=== PATIENT | female | born 1985 | race American Indian/Alaskan Native ===

== ENCOUNTER 2016-11-17 11:59 | Emergency (ER) | payer SELFPAY ==
[2016-11-17 12:35] VITALS: BP 133/87
[2016-11-17] MEDS ORDERED: MOTRIN PO ONE (13:08)
--- NOTE | 2016-11-17 13:08 | Emergency Department Report ---
Upper Extremity - HPI Chief Complaint: Extremity Injury, Upper Stated Complaint: PAIN IN RIGHT ARM Time Seen by Provider: 11/17/16 13:06 Upper Extremity: Right Shoulder (right shoulder pain after pulling a muscle at work.) Occurred When: 1 Day Mechanism: Other (pulled muscle) Severity: moderate (6 out of 10) Symptoms: Yes Pain with Movement (right shoulder), Yes Limited Range of Movement (right shoulder), No Deformity, No Numbness, No Weakness, No Swelling, No Bruising/Ecchymosis, No Laceration or Abrasion Other History: Patient reports that she was lifting an object at work and she pulled her right shoulder. pain 6 out of 10 that is achy . Denies any fever or chills. This happened one day ago and she says she did not take anything for pain. Patient says she has a history of high blood pressure and lupus . She is also has a history of pericarditis kidney disease and was on dialysis in the past but not now. She denies any chest pain or shortness of breath. Denies any radiation of pain. Pain is localized to her right shoulder. ED Review of Systems ROS: Stated complaint: PAIN IN RIGHT ARM Other details as noted in HPI Comment: All other systems reviewed and negative Constitutional: denies: chills, fever, malaise Respiratory: no symptoms reported Cardiovascular: denies: chest pain, palpitations, edema, syncope Gastrointestinal: denies: abdominal pain, nausea, vomiting, diarrhea Musculoskeletal: arthralgia. denies: back pain, joint swelling, myalgia Skin: denies: rash Neurological: denies: headache, weakness, numbness, paresthesias, confusion, abnormal gait, vertigo ED Past Medical Hx - Past Medical History Previous Medical History?: Yes Hx Hypertension: Yes (curently has high blood pressure) Hx Congestive Heart Failure: No Hx Diabetes: No Hx Deep Vein Thrombosis: No Hx Renal Disease: Yes (lupus/dialysis hx) Hx Sickle Cell Disease: No Hx Seizures: No Hx Asthma: No Hx COPD: No Hx HIV: No Additional medical history: Lupus. Hx pericarditis. Kidney function decreased and has been on Hemodialysis before - Surgical History Past Surgical History?: Yes Additional Surgical History: Removal of fluid from around heart. - Family History Family history: hypertension - Social History Smoking Status: Never Smoker Substance Use Type: None - Medications Home Medications: Home Medications Medication Instructions Recorded Confirmed Last Taken Type Acetaminophen [Non-Aspirin Pain 500 mg PO Q8H PRN #12 tablet 11/17/16 Unknown Rx Relief] Upper Extremity Exam - Exam General: Vital signs noted. No distress. Alert and acting appropriately. Head and Torso: No HEENT Abnormality (normal exam), No Neck Tenderness (supple, full range of motion ,no C-spine tenderness.), No Chest/Lungs Abnormality ( clear to auscultate bilaterally, no rhonchi wheezes or rales), No Abdominal Tenderness (nontender to palpate in all quadrants, normal bowel sounds. No guarding or rebound tenderness.), No Back Tenderness (full range of motion, normal inspection and no vertebral tenderness.) Shoulder Exam: Yes Normal Range of Motion in Shoulder ([place] full active range of motion to bilateral shoulders but she said it hurts when she moves her right shoulder.), No Shoulder Tenderness, No Clavicle Tenderness, No Shoulder Deformity, No AC Joint Tenderness Arm Exam: No Arm/Humerus Tenderness, No Arm Deformity Elbow: Yes Normal Range of Motion in Elbow, No Elbow Tenderness, No Elbow Deformity Forearm: No Forearm Tenderness, No Forearm Deformity, No Pain with Pronation, No Pain with Supination Wrist: Yes Normal ROM in Wrist, No Wrist Tenderness, No Wrist Deformity, No Snuffbox Tenderness, No Pain with Axial Thumb Compression Hand: Yes Normal ROM in Digit(s), No Hand Tenderness, No Hand Deformity, No Digit Tenderness, No Digit(s) Deformity, No Tendon Dysfunction CMS Exam: Yes Normal Distal Pulses, Yes Normal Capillary Refill, Yes Normal Distal Sensation, No Broken Skin ED Course Vital Signs 11/17/16 12:33 Temperature 98.1 F Pulse Rate 77 Respiratory 18 Rate Blood Pressure 133/87 O2 Sat by Pulse 96 Oximetry - Reevaluation(s) Reevaluation #1: 11/17/16 13:33 Patient received Motrin 800 mg in emergency room for shoulder pain. Awaiting shoulder x-ray ED Medical Decision Making - Radiology Data Radiology results: report reviewed X-ray of right shoulder reveal no acute bony abnormality or dislocation. No effusion or soft tissue swelling. - Medical Decision Making ED course: Patient here complaining of right shoulder Pain after lifting an object at work. Physical findings for right shoulder strain. Discussed the patient x-ray results which was negative for any fracture or dislocation. She was understanding of diagnosis and treatment plan. Patient given Motrin 800 mg in emergency room for pain which relieved her pain. Patient discharged home with prescription for Tylenol and to follow-up with orthopedic if she continues to have pain. Critical care attestation.: If time is entered above; I have spent that time in minutes in the direct care of this critically ill patient, excluding procedure time. ED Disposition Clinical Impression: Arthralgia of right shoulder region Right shoulder injury Qualifiers: Encounter type: initial encounter Qualified Code(s): S49.91XA - Unspecified injury of right shoulder and upper arm, initial encounter Disposition: TO HOME OR SELFCARE Is pt being admited?: No Does the pt Need Aspirin: No Condition: Stable Instructions: Arthralgia (ED) Additional Instructions: Rest affected area for 72 hours Rest, ice, compress and elevate area. Take Tylenol as prescribed. Prescriptions: Acetaminophen [Non-Aspirin Pain Relief] 500 mg PO Q8H PRN #12 tablet PRN Reason: Pain Referrals: ALAN LIMA MD [Staff Physician] - 3-5 Days Forms: Work/School Release Form(ED)
--- NOTE | 2016-11-17 14:15 | XRay Report ---
RIGHT SHOULDER: History: Right shoulder pain, injury. Routine views demonstrate normal bony and soft tissue structures with normal joint alignment of the shoulder. IMPRESSION: Normal study.
== END 2016-11-17 15:46 | disposition home or self-care (01) ==
LOC: ED 11:59
DX: S49.91XA Unspecified injury of right shoulder and upper arm, initial encounter (principal); I12.0 Hypertensive chronic kidney disease with stage 5 chronic kidney disease or end stage renal disease; N18.6 End stage renal disease; Z99.2 Dependence on renal dialysis
CPT/HCPCS: 99283

== ENCOUNTER 2017-01-16 10:28 | Emergency (ER) | payer SELFPAY ==
[2017-01-16 10:36] VITALS: BP 139/94
[2017-01-16] MEDS ORDERED: MOTRIN PO ONE (11:26)
--- NOTE | 2017-01-16 11:30 | Emergency Department Report ---
ED Headache HPI - General Chief Complaint: Headache Stated Complaint: FEVER/HEADACHE Time Seen by Provider: 01/16/17 11:25 Source: patient, RN notes reviewed - History of Present Illness Initial Comments: pt is a 31 y/o aaf with hx of aom, and seasonal allergies who presents for sinus headache x 1 week pain is 5/10 sinus pressure and aching, pain not relieved by otc nsaid, pain today has migrated to r ear there is no tinitis no loss of hearing fever high 101.2 oral at home subjective, pt denies sore throat no sob no wheezing no stridor. Quality: moderate Head Injury Location: frontal, other (frontal and maxillary sinus ) Recent Head Trauma: no recent headache/trauma, occasional headaches Modifying Factors: improves with: cold therapy, movement Associated Symptoms: facial pain, fever/chills, nasal drainage. denies: loss of consciousness, nausea/vomiting, nasal congestion, numbness in legs/feet, rash , seizures, sinus infection, stiff neck, vision changes, weakness Allergies/Adverse Reactions: Allergies heparin Adverse Reaction (Verified 07/14/15 11:40) Unknown Home Medications: Ambulatory Orders Acetaminophen [Non-Aspirin Pain Relief] 500 mg PO Q8H PRN #12 tablet 11/17/16 Amoxicillin/K Clav Tab [Augmentin 875 mg] 1 tab PO Q12HR #20 tab 01/16/17 Cetirizine HCl [ZyrTEC] 10 mg PO DAILY #30 capsule 01/16/17 Fluticasone [Flonase] 1 spray NS QDAY #1 bottle 01/16/17 Ibuprofen [Motrin 800 MG tab] 800 mg PO Q8HR PRN #30 tablet 01/16/17 ED Review of Systems ROS: Stated complaint: FEVER/HEADACHE Other details as noted in HPI Constitutional: no symptoms reported Eyes: denies: eye pain, eye discharge, vision change ENT: ear pain, congestion. denies: hearing loss, epistaxis Respiratory: denies: cough, shortness of breath, wheezing Cardiovascular: denies: chest pain, palpitations Endocrine: no symptoms reported Gastrointestinal: denies: abdominal pain, nausea, diarrhea Genitourinary: as per HPI Musculoskeletal: denies: back pain, joint swelling, arthralgia Skin: denies: rash, lesions Neurological: as per HPI ED Past Medical Hx - Past Medical History Previous Medical History?: Yes Hx Hypertension: Yes (curently has high blood pressure) Hx Congestive Heart Failure: No Hx Diabetes: No Hx Deep Vein Thrombosis: No Hx Renal Disease: Yes (lupus/dialysis hx) Hx Sickle Cell Disease: No Hx Seizures: No Hx Asthma: No Hx COPD: No Hx HIV: No Additional medical history: Lupus. Hx pericarditis. Kidney function decreased and has been on Hemodialysis before - Surgical History Past Surgical History?: Yes Additional Surgical History: Removal of fluid from around heart. - Social History Smoking Status: Never Smoker Substance Use Type: None - Medications Home Medications: Home Medications Medication Instructions Recorded Confirmed Last Taken Type Acetaminophen [Non-Aspirin Pain 500 mg PO Q8H PRN #12 tablet 11/17/16 Unknown Rx Relief] Amoxicillin/K Clav Tab [Augmentin 1 tab PO Q12HR #20 tab 01/16/17 Unknown Rx 875 mg] Cetirizine HCl [ZyrTEC] 10 mg PO DAILY #30 capsule 01/16/17 Unknown Rx Fluticasone [Flonase] 1 spray NS QDAY #1 bottle 01/16/17 Unknown Rx Ibuprofen [Motrin 800 MG tab] 800 mg PO Q8HR PRN #30 tablet 01/16/17 Unknown Rx ED Physical Exam - General Limitations: No Limitations General appearance: alert, in no apparent distress - Head Head exam: Present: atraumatic, normocephalic - Eye Eye exam: Present: normal appearance, PERRL, EOMI Pupils: Present: normal accommodation - ENT ENT exam: Present: mucous membranes moist - Expanded ENT Exam Expanded TM/Canal exam: Erythema: Right TM, Effusion: Right TM, Canal Tenderness: Right TM Mouth exam: Present: normal external inspection, tongue normal. Absent: trismus , muffled voice, tongue elevation Teeth exam: Present: normal inspection Throat exam: Positive: normal inspection. Negative: tonsillar erythema, tonsillomegaly, tonsillar exudate, R peritonsillar mass, L peritonsillar mass - Neck Neck exam: Present: normal inspection, full ROM, lymphadenopathy, thyromegaly. Absent: tenderness - Respiratory Respiratory exam: Present: normal lung sounds bilaterally. Absent: respiratory distress, wheezes, rhonchi, chest wall tenderness - Cardiovascular Cardiovascular Exam: Present: regular rate, normal rhythm. Absent: systolic murmur, diastolic murmur, rubs, gallop - GI/Abdominal GI/Abdominal exam: Present: soft, normal bowel sounds - Rectal Rectal exam: Present: deferred - Back Exam Back exam: Present: normal inspection - Neurological Exam Neurological exam: Present: alert, oriented X3 - Psychiatric Psychiatric exam: Present: normal affect, normal mood - Skin Skin exam: Present: warm, dry, intact, normal color. Absent: rash ED Course Vital Signs 01/16/17 10:34 Temperature 97.4 F L Pulse Rate 86 Respiratory 16 Rate Blood Pressure 139/94 O2 Sat by Pulse 100 Oximetry ED Medical Decision Making - Medical Decision Making pt is a 31 y/o aaf with hx of aom, and seasonal allergies who presents for sinus headache x 1 week pain is 5/10 sinus pressure and aching, pain not relieved by otc nsaid, pain today has migrated to r ear there is no tinnitis no loss of hearing fever high 101.2 oral at home subjective, pt denies sore throat no sob no wheezing no stridor. exam: bilat TM erythema pain with movement, bilat maxillary sinus tenderness nose: bilat turbinate erythema clear post nasal drip no obstruction no polyps, pharynx: moderate erythema no exudate no lesions no swelling uvula midline no stridor lungs clear bilat no wheezing, plan : tx for AOM/Sinusitis, Augmentin , ibuprofen, flonase, zyrtec, follow up up with pcp if symptoms not improving pt verbalized agreement and understanding with same. Critical care attestation.: If time is entered above; I have spent that time in minutes in the direct care of this critically ill patient, excluding procedure time. ED Disposition Clinical Impression: AOM (acute otitis media) Qualifiers: Otitis media type: serous Laterality: right Recurrence: not specified as recurrent Qualified Code(s): H65.01 - Acute serous otitis media, right ear Sinusitis Qualifiers: Sinusitis location: maxillary Chronicity: acute Recurrence: non-recurrent Qualified Code(s): J01.00 - Acute maxillary sinusitis, unspecified Disposition: TO HOME OR SELFCARE Is pt being admited?: No Does the pt Need Aspirin: No Condition: Good Instructions: Otitis Media (ED), Sinusitis (ED) Prescriptions: Amoxicillin/K Clav Tab [Augmentin 875 mg] 1 tab PO Q12HR #20 tab Cetirizine HCl [ZyrTEC] 10 mg PO DAILY #30 capsule Fluticasone [Flonase] 1 spray NS QDAY #1 bottle Ibuprofen [Motrin 800 MG tab] 800 mg PO Q8HR PRN #30 tablet PRN Reason: pain / fever Forms: Work/School Release Form(ED) Time of Disposition: 11:38
== END 2017-01-16 11:48 | disposition home or self-care (01) ==
LOC: ED 10:28
DX: H65.01 Acute serous otitis media, right ear (principal); J01.00 Acute maxillary sinusitis, unspecified; I10 Essential (primary) hypertension
CPT/HCPCS: 99282

== ENCOUNTER 2017-12-26 08:40 | Inpatient (IN) | payer OTHER ==
[2017-12-26] MEDS ORDERED: APRESOLINE PO ONE ×2 (09:01→10:27)
[2017-12-26 09:33] LABS: Basophils % (Auto) 0.5 % (0.0-1.8); Eosinophils # (Auto) 0.1 K/mm3 (0.0-0.4); Eosinophils % (Auto) 1.7 % (0.0-4.3); Hematocrit 43.6 % (30.3-42.9); Hemoglobin 14.8 gm/dl (10.1-14.3); Lymphocytes # (Auto) 1.6 K/mm3 (1.2-5.4); Lymphocytes % (Auto) 21.6 % (13.4-35.0); Mean Corpuscular HGB Conc 34 % (30-34); Mean Corpuscular Hemoglobin 29 pg (28-32); Mean Corpuscular Volume 85 fl (79-97); Monocytes # (Auto) 0.7 K/mm3 (0.0-0.8); Monocytes % (Auto) 9.1 % (0.0-7.3); Platelet Count 115 K/mm3 (140-440); Red Cell Distribution Width 15.3 % (13.2-15.2)
[2017-12-26 09:47] LABS: Alanine Aminotransferase 58 units/L (7-56); Albumin 2.2 g/dL (3.9-5); BUN/Creatinine Ratio 18; Blood Urea Nitrogen 16 mg/dL (7-17); Calcium 8.7 mg/dL (8.4-10.2); Hemolysis Index 12
--- NOTE | 2017-12-26 10:31 | Emergency Department Report ---
ED Female HPI - General Chief complaint: Abdominal Pain Stated complaint: STOMACH PAIN, NO PERIOD FOR ONE MONTH Time Seen by Provider: 12/26/17 10:22 Source: patient Mode of arrival: Ambulatory Limitations: No Limitations - History of Present Illness Initial comments: Patient is 32 years old female with no significant past medical history. Patient is 2 para 1. She presented to the ER complaining of abdominal pain for the last 2 weeks. Patient describes her pain as cramping. Patient stated that she missed her period approximately 2 month ago. She denied any vaginal bleeding or vaginal discharge. No nausea or vomiting. Patient stated that she never been diagnosed as having blood pressure however her blood pressure in the triage is 176/112. Patient denied any headache, chest pain, weakness numbness or tingling sensation. MD Complaint: pelvic pain -: week(s) (2 weeks) - Related Data Previous Rx's Medication Instructions Recorded Last Taken Type Acetaminophen [Non-Aspirin Pain 500 mg PO Q8H PRN #12 tablet 11/17/16 Unknown Rx Relief] Amoxicillin/K Clav Tab [Augmentin 1 tab PO Q12HR #20 tab 01/16/17 Unknown Rx 875 mg] Cetirizine HCl [ZyrTEC] 10 mg PO DAILY #30 capsule 01/16/17 Unknown Rx Fluticasone [Flonase] 1 spray NS QDAY #1 bottle 01/16/17 Unknown Rx Ibuprofen [Motrin 800 MG tab] 800 mg PO Q8HR PRN #30 tablet 01/16/17 Unknown Rx Allergies Allergy/AdvReac Type Severity Reaction Status Date / Time heparin AdvReac Unknown Verified 07/14/15 11:40 ED Review of Systems ROS: Stated complaint: STOMACH PAIN, NO PERIOD FOR ONE MONTH Other details as noted in HPI Comment: All other systems reviewed and negative Respiratory: denies: cough, orthopnea, shortness of breath, SOB with exertion Cardiovascular: denies: chest pain, palpitations, dyspnea on exertion Gastrointestinal: abdominal pain. denies: nausea, vomiting, diarrhea, constipation, hematemesis, melena, hematochezia Genitourinary: denies: urgency, dysuria, frequency, hematuria, discharge Musculoskeletal: denies: back pain Neurological: denies: headache, weakness ED Past Medical Hx - Past Medical History Previous Medical History?: Yes Hx Hypertension: Yes (curently has high blood pressure) Hx Congestive Heart Failure: No Hx Diabetes: No Hx Deep Vein Thrombosis: No Hx Renal Disease: Yes (lupus/dialysis hx) Hx Sickle Cell Disease: No Hx Seizures: No Hx Asthma: No Hx COPD: No Hx HIV: No Additional medical history: Lupus. Hx pericarditis. Kidney function decreased and has been on Hemodialysis before - Surgical History Past Surgical History?: Yes Additional Surgical History: Removal of fluid from around heart. - Social History Smoking Status: Never Smoker Substance Use Type: None - Medications Home Medications: Home Medications Medication Instructions Recorded Confirmed Last Taken Type Acetaminophen [Non-Aspirin Pain 500 mg PO Q8H PRN #12 tablet 11/17/16 Unknown Rx Relief] Amoxicillin/K Clav Tab [Augmentin 1 tab PO Q12HR #20 tab 01/16/17 Unknown Rx 875 mg] Cetirizine HCl [ZyrTEC] 10 mg PO DAILY #30 capsule 01/16/17 Unknown Rx Fluticasone [Flonase] 1 spray NS QDAY #1 bottle 01/16/17 Unknown Rx Ibuprofen [Motrin 800 MG tab] 800 mg PO Q8HR PRN #30 tablet 01/16/17 Unknown Rx ED Physical Exam - General Limitations: No Limitations General appearance: alert, in no apparent distress - Head Head exam: Present: atraumatic, normocephalic, normal inspection - ENT ENT exam: Present: normal exam, normal orophraynx, mucous membranes moist - Neck Neck exam: Present: normal inspection, full ROM. Absent: tenderness, meningismus - Respiratory Respiratory exam: Present: normal lung sounds bilaterally - Cardiovascular Cardiovascular Exam: Present: regular rate, normal rhythm, normal heart sounds - GI/Abdominal GI/Abdominal exam: Present: soft, normal bowel sounds. Absent: distended, tenderness, guarding, rebound, rigid, diminished bowel sounds, organomegaly, mass, bruit, pulsatile mass, hernia - Extremities Exam Extremities exam: Present: normal inspection, full ROM, normal capillary refill. Absent: tenderness, pedal edema, calf tenderness - Back Exam Back exam: Present: normal inspection, full ROM. Absent: CVA tenderness (R), CVA tenderness (L), muscle spasm, paraspinal tenderness, vertebral tenderness, rash noted - Neurological Exam Neurological exam: Present: alert, oriented X3, CN II-XII intact, normal gait, reflexes normal - Skin Skin exam: Present: warm, intact, normal color ED Course Vital Signs 12/26/17 12/26/17 12/26/17 08:52 09:22 09:24 Temperature 97.7 F Pulse Rate 105 H 101 H 99 H Respiratory 18 18 Rate Blood Pressure 177/129 176/129 Blood Pressure 176/129 [Right] O2 Sat by Pulse 100 99 Oximetry 12/26/17 12/26/17 12/26/17 09:52 10:00 10:15 Temperature 98.4 F Pulse Rate 93 H Respiratory 18 Rate Blood Pressure 169/103 188/129 170/116 Blood Pressure 167/119 [Right] O2 Sat by Pulse 99 Oximetry 12/26/17 10:32 Temperature Pulse Rate 93 H Respiratory Rate Blood Pressure 167/119 Blood Pressure [Right] O2 Sat by Pulse Oximetry ED Medical Decision Making - Lab Data Result diagrams: 12/26/17 09:12 12/26/17 09:12 - Radiology Data Radiology results: report reviewed Referring Physician: VALARIE GIL Patient Name: MAURICIO JIMENEZ Date of : 1985 Sex: Female Report Date: 2017-12-26 Report Status: Finalized Findings [facility] [address] [place] [address] Ultrasound Report Signed Patient: MAURICIO JIMENEZ MR#: [id number] : 1985 Acct:[id number] Age/Sex: 32 / F ADM Date: 12/26/17 Loc: ED Attending Dr: Ordering Physician: VALARIE GIL Date of Service: 12/26/17 Procedure(s): US OB >= 14 weeks Fetus Accession Number(s): [id number] cc: VALARIE GIL FINAL REPORT EXAM: US OB gt; = 14 WEEKS FETUS HISTORY: abdominal pain and COMPARISON: None. TECHNIQUE: Limited obstetric ultrasound was performed. FINDINGS: There is a single gestation. There is no cardiac activity detected. Biparietal diameter corresponds to a gestational age of 29 weeks, 1 day. Head circumference corresponds to a gestational age of 30 weeks, 0 days. Abdominal circumference corresponds to a gestational age of 28 weeks, 5 days. Femoral length corresponds to a gestational age of 29 weeks, 4 days. Composite gestational age by ultrasound is 29 weeks, 3 days, with estimated date of delivery of 03/10/2018. There is an anterior grade 0 placenta. There is oligohydramnios with an amniotic fluid index of 3 centimeters. IMPRESSION: Absent heart activity concerning for demise. Composite gestational age by ultrasound is 29 weeks, 0 days, with estimated date of delivery of 03/10/2018. Oligohydramnios with amniotic fluid index of 3 centimeters. Findings were discussed with Dr. Fang at 11:54 a.m., Eastern standard time, on 12/26/2017. Transcribed By: FARSHAD Dictated By: CHLOE BUENROSTRO MD Electronically Authenticated By: CHLOE BUENROSTRO MD Signed Date/Time: 12/26/17 1154 DD/ 53 TD/TT: 12/26/171153 - Medical Decision Making I discussed the patient is Dr. Taylor, she advised to start magnesium sulfate at 4 g IV and admit patient to labor and delivery. Critical Care Time: Yes Critical care time in (mins) excluding proc time.: 30 Critical care attestation.: If time is entered above; I have spent that time in minutes in the direct care of this critically ill patient, excluding procedure time. ED Disposition Clinical Impression: demise, greater than 22 weeks, antepartum, Preeclampsia, Hypertensive emergency Disposition: [id number] OP ADMIT IP TO THIS HOSP Is pt being admited?: Yes Condition: Stable Instructions: Abdominal Pain (ED), Hypertension (ED) Referrals: PRIMARY CARE, [Primary Care Provider] - 3-5 Days
--- NOTE | 2017-12-26 12:02 | Ultrasound Report ---
FINAL REPORT EXAM: US OB > = 14 WEEKS FETUS HISTORY: abdominal pain and COMPARISON: None. TECHNIQUE: Limited obstetric ultrasound was performed. FINDINGS: There is a single gestation. There is no cardiac activity detected. Biparietal diameter corresponds to a gestational age of 29 weeks, 1 day. Head circumference corresponds to a gestational age of 30 weeks, 0 days. Abdominal circumference corresponds to a gestational age of 28 weeks, 5 days. Femoral length corresponds to a gestational age of 29 weeks, 4 days. Composite gestational age by ultrasound is 29 weeks, 3 days, with estimated date of delivery of 03/10/2018. There is an anterior grade 0 placenta. There is oligohydramnios with an amniotic fluid index of 3 centimeters. IMPRESSION: Absent heart activity concerning for demise. Composite gestational age by ultrasound is 29 weeks, 0 days, with estimated date of delivery of 03/10/2018. Oligohydramnios with amniotic fluid index of 3 centimeters. Findings were discussed with Dr. Fang at 11:54 a.m., Eastern standard time, on 12/26/2017.
[2017-12-26] MEDS ORDERED: MAGNESIUM SULFATE 4GM/100ML 4 GM/100 ML BAG IV ONE (13:00)
[2017-12-26] MEDS ORDERED: LACTATED RINGERS 1,000 ML ONE (13:51)
[2017-12-26] MEDS ORDERED: APRESOLINE IV PRN (13:54)
[2017-12-26] MEDS ORDERED: MINERAL OIL PO PRN (13:54)
[2017-12-26] MEDS ORDERED: BRETHINE IVP PRN (13:54)
[2017-12-26] MEDS ORDERED: BRETHINE SUB-Q PRN (13:54)
[2017-12-26] MEDS: LACTATED RINGERS 1,000 ML IV SCH (14:00)
[2017-12-26] MEDS ORDERED: PITOCin/NS 30 UNIT/500ML 30 UNITS/500 ML BAG IV SCH (14:00)
[2017-12-26] MEDS ORDERED: PITOCin/NS 20 UNIT/1000ML DRIP 20 UNITS/1,000 ML BAG IV SCH (14:00)
--- NOTE | 2017-12-26 14:00 | History and Physical Report ---
History of Present Illness Date of examination: 12/26/17 Date of admission: 12/26/17 12:31 Chief complaint: abdominal pain History of present illness: 32y/o @ 29+3 weeks who presents to the ED with the complaint of ED. Her blood pressures were noted to be significantly elevated. HCG was positive. Pelvic ultrasound demonstrated an intrauterine @ 29 weeks without cardiac activity and oligohydramnios. The patients states she was not aware she was . She has not had care during this . She denies any hypertensive events with her prior . Past History Past Medical History: other (lupus; pericarditis) Past Surgical History: other (pericardiocentesis) Social history: single - Obstetrical History Expected Date of Delivery: 03/10/18 Actual Gestation: 29 Week(s) 3 Day(s) : 2 Para: 1 Hx # Term Pregnancies: 1 Number of Pregnancies: 0 Spontaneous Abortions: 0 Induced : 0 Number of Living Children: 1 Medications and Allergies Allergies Allergy/AdvReac Type Severity Reaction Status Date / Time heparin AdvReac Unknown Verified 07/14/15 11:40 Home Medications Medication Instructions Recorded Confirmed Last Taken Type Acetaminophen [Non-Aspirin Pain 500 mg PO Q8H PRN #12 tablet 11/17/16 Unknown Rx Relief] Amoxicillin/K Clav Tab [Augmentin 1 tab PO Q12HR #20 tab 01/16/17 Unknown Rx 875 mg] Cetirizine HCl [ZyrTEC] 10 mg PO DAILY #30 capsule 01/16/17 Unknown Rx Fluticasone [Flonase] 1 spray NS QDAY #1 bottle 01/16/17 Unknown Rx Ibuprofen [Motrin 800 MG tab] 800 mg PO Q8HR PRN #30 tablet 01/16/17 Unknown Rx Active Meds: Active Medications Ephedrine Sulfate (Ephedrine Sulfate) 10 mg IV Q2M PRN PRN Reason: Hypotension Fentanyl (Sublimaze) 100 mcg IV Q2H PRN PRN Reason: Labor Pain Hydralazine HCl (Apresoline) 5 mg IV Q30MIN PRN PRN Reason: Hypertension Magnesium Sulfate (Magnesium Sulfate 4gm/100ml) 4 gm in 100 mls @ 25 mls/hr IV ONCE.ED ONE Stop: 12/26/17 16:59 Last Admin: 12/26/17 13:29 Dose: Not Given Lactated Ringer's (Lactated Ringers) 1,000 mls @ 125 mls/hr IV DIRECT TERRANCE Oxytocin/Sodium Chloride (Pitocin/Ns 20 Unit/1000ml Drip) 20 units in 1,000 mls @ 125 mls/hr IV DIRECT TERRANCE Oxytocin/Sodium Chloride (Pitocin/Ns 30 Unit/500ml) 30 units in 500 mls @ 1 mls /hr IV TITR TERRANCE; Protocol Lidocaine (Xylocaine 2%) 20 ml INFILTRATI ONCE ONE Stop: 12/26/17 13:55 Mineral Oil (Mineral Oil) 30 ml PO QHS PRN PRN Reason: Constipation Misoprostol (Cytotec) 200 mcg VAGINAL Q4H TERRANCE Terbutaline Sulfate (Brethine) 0.25 mg SUB-Q ONCE PRN PRN Reason: Hyperstimulation/Hypertonicity Terbutaline Sulfate (Brethine) 0.25 mg IVP ONCE PRN PRN Reason: Hyperstimulation/Hypertonicity Review of Systems Eyes: no blurred vision Gastrointestinal: abdominal pain - Vital Signs Vital signs: Vital Signs Temp Pulse Resp BP Pulse Ox 97.7 F 105 H 18 177/129 100 12/26/17 08:52 12/26/17 08:52 12/26/17 08:52 12/26/17 08:52 12/26/17 08:52 Temp Pulse Resp BP Pulse Ox 98.4 F 101 H 17 182/121 98 12/26/17 13:29 12/26/17 13:54 12/26/17 13:29 12/26/17 13:54 12/26/17 13:29 Results Result Diagrams: 12/26/17 09:12 12/26/17 09:12 Abnormal lab results 12/26/17 12/26/17 12/26/17 Range/Units 09:12 09:12 09:12 RBC 5.10 H (3.65-5.03) M/mm3 Hgb 14.8 H (10.1-14.3) gm/dl Hct 43.6 H (30.3-42.9) % RDW 15.3 H (13.2-15.2) % Plt Count 115 L (140-440) K/mm3 [place] % (Auto) 9.1 H (0.0-7.3) % Sodium 132 L (137-145) mmol/L Carbon Dioxide 18 L (22-30) mmol/L AST 58 H (5-40) units/L ALT 58 H (7-56) units/L Alkaline Phosphatase 404 H (35-129) units/L Lactate Dehydrogenase (91-180) units/L Albumin 2.2 L (3.9-5) g/dL HCG, Quant 8843 H (0-4) mIU/mL 12/26/17 Range/Units 09:12 RBC (3.65-5.03) M/mm3 Hgb (10.1-14.3) gm/dl Hct (30.3-42.9) % RDW (13.2-15.2) % Plt Count (140-440) K/mm3 [place] % (Auto) (0.0-7.3) % Sodium (137-145) mmol/L Carbon Dioxide (22-30) mmol/L AST (5-40) units/L ALT (7-56) units/L Alkaline Phosphatase (35-129) units/L Lactate Dehydrogenase 355 H (91-180) units/L Albumin (3.9-5) g/dL HCG, Quant (0-4) mIU/mL All other labs normal. Assessment and Plan - Patient Problems (1) HELLP syndrome (HELLP), second trimester Current Visit: Yes Status: Acute Plan to address problem: admit to L&D for magnesium therapy and delivery (2) demise, greater than 22 weeks, antepartum Current Visit: Yes Status: Acute (3) Hypertensive emergency Current Visit: Yes Status: Acute (4) Preeclampsia Current Visit: Yes Status: Acute
[2017-12-26] MEDS ORDERED: MAGNESIUM SULFATE 40GM/1000ML 40 GM/1,000 ML BAG IV ONE (14:13)
[2017-12-26] MEDS: NORMODYNE IV PRN ×2 (14:20→20:08)
[2017-12-26] MEDS: SUBLIMAZE IV PRN ×2 (14:20→17:52)
[2017-12-26] MEDS: MAGNESIUM SULFATE 40GM/1000ML 40 GM/1,000 ML BAG IV SCH (14:40)
[2017-12-26] MEDS ORDERED: XYLOCAINE 2% INFILTRATI ONE (14:54)
[2017-12-26] MEDS ORDERED: CYTOTEC VAGINAL SCH (15:00)
[2017-12-26 15:07] LABS: Amphetamine Screen,Urine PRESUMPTIVE NEGATIVE; Benzodiazepines Screen,Urine PRESUMPTIVE NEGATIVE; Cannabinoid Screen,Urine PRESUMPTIVE NEGATIVE; Cocaine Screen,Urine PRESUMPTIVE NEGATIVE; Methadone Screen,Urine PRESUMPTIVE NEGATIVE; Opiate Screen,Urine PRESUMPTIVE NEGATIVE
[2017-12-26 15:13] LABS: Bacteria,Urine 1+ /HPF (Negative); Bilirubin,Urine NEG (Negative); Blood,Urine SM (Negative); Color,Urine Yellow (Yellow); Urobilinogen,Urine < 2.0 mg/dL (<2.0)
[2017-12-26 15:20] LABS: Protein,Urine >500 mg/dL (Negative)
[2017-12-26 19:57] LABS: Alanine Aminotransferase 58 units/L (7-56); Albumin 2.6 g/dL (3.9-5); BUN/Creatinine Ratio 18; Blood Urea Nitrogen 14 mg/dL (7-17); Calcium 8.1 mg/dL (8.4-10.2); Hemolysis Index 51; Uric Acid 8.5 mg/dL (3.5-7.6)
[2017-12-26 20:08] LABS: Hematocrit 50.1 % (30.3-42.9); Mean Corpuscular HGB Conc 34 % (30-34); Mean Corpuscular Hemoglobin 30 pg (28-32); Mean Corpuscular Volume 88 fl (79-97); Platelet Count 119 K/mm3 (140-440); Red Blood Count 5.67 M/mm3 (3.65-5.03)
[2017-12-26] MEDS ORDERED: MILK OF MAGNESIA PO PRN (22:54)
[2017-12-26] MEDS ORDERED: TUCKS PAD TP PRN (22:54)
[2017-12-26] MEDS ORDERED: ZOFRAN IV PRN (22:54)
[2017-12-26] MEDS ORDERED: BENADRYL PO PRN (22:54)
[2017-12-26] MEDS ORDERED: PHENERGAN PO PRN (22:54)
[2017-12-26] MEDS ORDERED: TYLENOL PO PRN (22:54)
[2017-12-26] MEDS ORDERED: LANSINOH TP PRN (22:54)
[2017-12-26] MEDS ORDERED: DULCOLAX PR PRN (22:54)
[2017-12-26] MEDS ORDERED: NORCO 5/325 PO PRN (22:54)
[2017-12-26] MEDS ORDERED: PHENERGAN PR PRN (22:54)
[2017-12-26] MEDS ORDERED: SODIUM CHLORIDE FLUSH SYRINGE 10 ML IV PRN (23:00)
[2017-12-26] MEDS: MOTRIN PO SCH (23:49)
[2017-12-27] MEDS: NORMODYNE IV PRN (08:17)
[2017-12-27] MEDS: LACTATED RINGERS 1,000 ML IV SCH (10:27)
[2017-12-27] MEDS: MAGNESIUM SULFATE 40GM/1000ML 40 GM/1,000 ML BAG IV SCH (10:28)
[2017-12-27] MEDS: MOTRIN PO SCH ×3 (11:19→18:26)
[2017-12-27 12:54] LABS: Hematocrit 39.3 % (30.3-42.9); Hemoglobin 13.7 gm/dl (10.1-14.3)
--- NOTE | 2017-12-27 12:59 | Procedure Note ---
OB Delivery Note - Delivery Date of Delivery: 12/26/17 Surgeon: ESTEPHANIA CHRIS Estimated blood loss: 100cc - Vaginal Delivery presentation: vertex Delivery position: OA Intrapartum events: no care, other(please specify) (intrauterine demise) Delivery induction: misoprostol Delivery monitor: none Route of delivery: Delivery placenta: spontaneous Delivery cord: 3 umbilical vessels Anesthesia: none Delivery comments: Patient was admitted for induction of labor of a demise at 29 weeks. The patient induction was initiated with cytotec and she had a spontaneous vaginal delivery attended by the nurse. The infant was a non-viable male infant weighing 3lbs 7oz. The placenta delivered spontaneously intact. No lacerations were noted - A at 1 minute: 0 at 5 minutes: 0 (weight 3lbs 7oz) Gender: Male
[2017-12-27] MEDS: NORMODYNE PO SCH (13:27)
--- NOTE | 2017-12-27 14:43 | Progress Note ---
Assessment and Plan - Patient Problems (1) HELLP syndrome (HELLP), second trimester Current Visit: Yes Status: Acute Plan to address problem: patient demonstrating clinical improvement transition to po labetalol (2) demise, greater than 22 weeks, antepartum Current Visit: Yes Status: Acute (3) Hypertensive emergency Current Visit: Yes Status: Acute (4) Preeclampsia Current Visit: Yes Status: Acute Subjective - Subjective Date of service: 12/27/17 Interval history: The patient is receiving magnesium therapy for 24hr post delivery. She is without complaints. Blood pressures have been labile but improved over her intrapartum pressures. Patient reports: appetite normal, pain well controlled : Objective - Vital Signs Latest vital signs: Vital Signs Temp Pulse Resp BP BP Pulse Ox 12/27/17 12:11 98.1 F 84 20 158/107 93 12/27/17 10:11 97.8 F 76 20 125/84 96 12/27/17 09:00 71 138/96 96 12/27/17 08:31 136/99 12/27/17 08:26 134/96 12/27/17 08:20 128/91 12/27/17 08:17 78 149/102 12/27/17 08:10 149/102 12/27/17 07:41 97.7 F 86 22 153/104 153/104 94 12/27/17 06:00 97.6 F 79 18 128/87 12/27/17 04:00 98.1 F 78 18 135/87 12/27/17 02:00 98.5 F 76 20 122/83 12/27/17 00:43 98.2 F 82 18 121/72 12/26/17 23:49 18 12/26/17 22:50 98.1 F 83 18 130/90 12/26/17 22:16 82 130/81 12/26/17 22:01 81 134/84 12/26/17 21:46 83 143/88 12/26/17 21:31 76 146/88 12/26/17 21:16 76 144/83 12/26/17 21:02 80 146/74 12/26/17 20:46 76 159/114 12/26/17 20:31 81 132/96 12/26/17 20:17 75 168/91 12/26/17 20:12 96.7 F L 75 168/91 12/26/17 19:46 81 195/125 12/26/17 19:15 86 173/83 12/26/17 19:02 81 167/78 12/26/17 18:46 82 179/113 12/26/17 18:32 84 180/101 12/26/17 18:16 85 165/78 12/26/17 18:10 91 H 159/70 12/26/17 18:01 101 H 194/136 12/26/17 17:47 90 197/110 12/26/17 17:45 98.5 F 90 18 197/110 12/26/17 17:32 78 192/121 12/26/17 17:16 75 166/101 12/26/17 17:01 78 149/84 12/26/17 16:46 83 147/80 12/26/17 16:31 76 155/78 12/26/17 16:16 85 154/72 12/26/17 16:01 81 161/90 12/26/17 15:46 74 149/72 12/26/17 15:32 80 137/90 12/26/17 15:16 81 155/95 12/26/17 15:01 80 148/91 12/26/17 14:46 75 145/90 Intake and Output 12/26/17 12/27/17 12/27/17 22:59 06:59 14:59 Intake Total 1000 1110 Output Total 1100 800 800 Balance -100 -800 310 Intake: IV 1000 990 Lactated Ringers 1,000 ml 1000 @ 125 mls/hr IV DIRECT TERRANCE Rx#:[id number] MAGNESIUM SULFATE 40GM/ 990 1000ML 40 gm In 1,000 ml @ 2 GM/HR 50 mls/hr IV DIRECT TERRANCE Rx#:[id number] Oral 120 Output: Urine 1100 800 800 Indwelling Catheter 1100 800 800 Other: Total, Intake Amount 120 Total, Output Amount 1100 800 800 Estimated Blood Loss 50 - Exam Abdomen: Present: normal appearance, soft - Labs Labs: Abnormal lab results 12/26/17 12/26/17 12/26/17 Range/Units 14:12 19:17 19:17 RBC 5.67 H (3.65-5.03) M/mm3 Hgb 17.0 H (10.1-14.3) gm/dl Hct 50.1 H D (30.3-42.9) % RDW 16.0 H (13.2-15.2) % Plt Count 119 L (140-440) K/mm3 Sodium 129 L (137-145) mmol/L Carbon Dioxide 15 L (22-30) mmol/L Uric Acid 8.5 H (3.5-7.6) mg/dL Calcium 8.1 L (8.4-10.2) mg/dL Magnesium (1.7-2.3) mg/dL AST 57 H (5-40) units/L ALT 58 H (7-56) units/L Alkaline Phosphatase 398 H (35-129) units/L Albumin 2.6 L (3.9-5) g/dL Urine WBC (Auto) 13.0 H (0.0-6.0) /HPF 12/27/17 Range/Units 12:30 RBC (3.65-5.03) M/mm3 Hgb (10.1-14.3) gm/dl Hct (30.3-42.9) % RDW (13.2-15.2) % Plt Count (140-440) K/mm3 Sodium (137-145) mmol/L Carbon Dioxide (22-30) mmol/L Uric Acid (3.5-7.6) mg/dL Calcium (8.4-10.2) mg/dL Magnesium 6.40 H (1.7-2.3) mg/dL AST (5-40) units/L ALT (7-56) units/L Alkaline Phosphatase (35-129) units/L Albumin (3.9-5) g/dL Urine WBC (Auto) (0.0-6.0) /HPF
[2017-12-27 16:35] LABS: Alanine Aminotransferase 40 units/L (7-56); Albumin 2.1 g/dL (3.9-5); BUN/Creatinine Ratio 13; Blood Urea Nitrogen 12 mg/dL (7-17); Calcium 7.1 mg/dL (8.4-10.2); Hemolysis Index 14; Uric Acid 8.6 mg/dL (3.5-7.6)
[2017-12-27 16:58] LABS: Hematocrit 39.7 % (30.3-42.9); Hemoglobin 13.5 gm/dl (10.1-14.3); Mean Corpuscular HGB Conc 34 % (30-34); Mean Corpuscular Hemoglobin 29 pg (28-32); Mean Corpuscular Volume 85 fl (79-97); Platelet Count 139 K/mm3 (140-440); Red Blood Count 4.69 M/mm3 (3.65-5.03); Red Cell Distribution Width 15.5 % (13.2-15.2)
[2017-12-28] MEDS: MOTRIN PO SCH ×4 (01:29→17:32)
[2017-12-28] MEDS: NORMODYNE IV PRN (01:30)
[2017-12-28] MEDS: NORMODYNE PO SCH ×4 (01:31→22:25)
--- NOTE | 2017-12-28 08:12 | Progress Note ---
Assessment and Plan A/P PPD 1 s/p non viable pree on mag continue labatelol 300 mg po bid routine PP care Subjective - Subjective Date of service: 12/28/17 Patient reports: appetite normal, voiding normally, pain well controlled, flatus , ambulating normally [place]: Objective - Vital Signs Latest vital signs: Vital Signs Temp Pulse Resp BP BP Pulse Ox 12/28/17 05:50 98.3 F 78 20 125/82 98 12/28/17 01:06 97.6 F 76 20 149/103 99 12/27/17 21:58 97.3 F L 76 20 130/96 99 12/27/17 20:24 97.3 F L 20 130/96 12/27/17 16:28 141/101 12/27/17 16:03 97.4 F L 68 20 161/109 161/109 93 12/27/17 13:59 97.5 F L 76 20 121/74 95 12/27/17 12:11 98.1 F 84 20 158/107 93 12/27/17 10:11 97.8 F 76 20 125/84 96 12/27/17 09:00 71 138/96 96 12/27/17 08:31 136/99 12/27/17 08:26 134/96 12/27/17 08:20 128/91 12/27/17 08:17 78 149/102 Intake and Output 12/27/17 12/28/17 12/28/17 23:59 07:59 15:59 Intake Total 1000 1000 Balance 1000 1000 Intake: IV 1000 1000 Lactated Ringers 1,000 ml 1000 @ 125 mls/hr IV DIRECT TERRANCE Rx#:[id number] PITOCin/NS 20 UNIT/1000ML 1000 DRIP 20 units In 1,000 ml @ 125 mls/hr IV DIRECT TERRANCE Rx#:[id number] - Exam Breasts: Present: normal Cardiovascular: Present: Regular rate, Normal S1 Lungs: Present: Clear to auscultation, Normal air movement Abdomen: Present: normal appearance, soft, normal bowel sounds. Absent: distention, tenderness, guarding Vulva: both: normal Uterus: Present: normal, firm, fundal height below umbilicus. Absent: bogginess , tenderness Extremities: Present: normal Deep Tendon Reflex Grade: Normal +2 - Labs Labs: Abnormal lab results 12/27/17 12/27/17 12/27/17 Range/Units 12:30 13:03 16:01 RDW 15.5 H (13.2-15.2) % Plt Count 139 L (140-440) K/mm3 Sodium 130 L (137-145) mmol/L Carbon Dioxide 17 L (22-30) mmol/L Uric Acid 8.6 H (3.5-7.6) mg/dL Calcium 7.1 L (8.4-10.2) mg/dL Magnesium 6.40 H (1.7-2.3) mg/dL Alkaline Phosphatase 302 H (35-129) units/L Albumin 2.1 L (3.9-5) g/dL
[2017-12-29] MEDS: MOTRIN PO SCH ×4 (00:48→17:43)
[2017-12-29] MEDS: NORMODYNE PO SCH ×2 (10:15→22:31)
--- NOTE | 2017-12-29 13:18 | Progress Note ---
Assessment and Plan A/P PPD 2 s/p non viable pree on mag continue labatelol 300 mg po bid added procardia 60 mg XL QD close monitor to BP Subjective - Subjective Date of service: 12/29/17 Principal diagnosis: s/p severe pree and IUFD Patient reports: appetite normal, voiding normally, pain well controlled, ambulating normally : Objective - Vital Signs Latest vital signs: Vital Signs Temp Pulse Resp BP BP Pulse Ox 12/29/17 11:50 98.1 F 73 20 140/99 65 L 12/29/17 10:15 60 152/79 12/29/17 07:38 99.1 F 84 18 152/79 152/79 99 12/29/17 06:47 18 12/29/17 05:47 18 12/29/17 04:25 98.2 F 69 20 124/78 12/29/17 01:48 16 12/29/17 00:48 18 12/29/17 00:00 98.2 F 92 H 20 142/92 12/28/17 22:25 79 160/95 12/28/17 20:05 98.1 F 83 20 132/85 12/28/17 16:54 98.6 F 12/28/17 15:23 79 148/85 98 Intake and Output 12/28/17 12/29/17 12/29/17 23:59 07:59 15:59 Intake Total 240 480 120 Balance 240 480 120 Intake: Oral 480 120 Intake, Free Water 240 Other: Total, Intake Amount 240 120 # Voids Void 1 1 - Exam Breasts: Present: normal Cardiovascular: Present: Regular rate, Normal S1 Lungs: Present: Clear to auscultation, Normal air movement Abdomen: Present: normal appearance, soft, normal bowel sounds. Absent: distention, tenderness, guarding Vulva: both: normal Uterus: Present: normal, firm, fundal height below umbilicus. Absent: bogginess , tenderness Extremities: Present: normal Deep Tendon Reflex Grade: Normal +2
[2017-12-29] MEDS: PROCARDIA XL PO SCH (13:45)
[2017-12-30] MEDS: MOTRIN PO SCH ×2 (00:06→06:32)
[2017-12-30 08:48] VITALS: BP 136/91
--- NOTE | 2017-12-30 09:04 | Progress Note ---
Assessment and Plan - Patient Problems (1) HELLP syndrome (HELLP), second trimester Current Visit: Yes Status: Acute (2) demise, greater than 22 weeks, antepartum Current Visit: Yes Status: Acute (3) Hypertensive emergency Current Visit: Yes Status: Acute (4) Preeclampsia Current Visit: Yes Status: Acute Subjective - Subjective Date of service: 12/30/17 Principal diagnosis: s/p severe pree and IUFD Objective - Vital Signs Latest vital signs: Vital Signs Temp Pulse Resp BP BP Pulse Ox 12/30/17 07:32 98.5 F 88 18 136/91 96 12/30/17 04:15 98.2 F 91 H 20 136/85 96 12/30/17 00:00 98.9 F 84 20 123/83 97 12/29/17 22:31 82 154/103 12/29/17 20:10 98.2 F 81 20 119/75 96 12/29/17 17:30 135/89 12/29/17 16:15 20 12/29/17 15:59 97.9 F 77 20 173/102 97 12/29/17 11:50 98.1 F 73 20 140/99 65 L 12/29/17 10:15 60 152/79 Intake and Output 12/29/17 12/30/17 12/30/17 22:59 06:59 14:59 Intake Total 480 Balance 480 Intake: Oral 480 Other: Total, Intake Amount 240 # Voids Void 1 1
--- NOTE | 2017-12-30 09:08 | Discharge Summary ---
Providers - Providers Date of Admission: 12/26/17 12:31 Date of discharge: 12/30/17 Attending physician: ESTEPHANIA CHRIS 12/26/17 12:27 Consult to Physician [CONS] Stat Comment: Consulting Provider: ESTEPHANIA CHRIS Physician Instructions: Reason For Exam: demise at 29 weeks, preeclampsia Primary care physician: WATER TREATMENT TECHNICIAN Hospitalization Reason for admission: IUFD Delivery: Discharge diagnosis: other (Severe preeclampsia), intrapartum demise Hospital course: Patient admitted from the ED with severely elevated blood pressures and an IUFD consistent with 29 weeks. The patient was not aware she was . She had a and was placed on magnesium and antihypertensives. Condition at discharge: Good Disposition: DC-01 TO HOME OR SELFCARE - Discharge Diagnoses (1) HELLP syndrome (HELLP), second trimester Status: Acute (2) demise, greater than 22 weeks, antepartum Status: Acute (3) Hypertensive emergency Status: Acute (4) Preeclampsia Status: Acute Plan - Discharge Medications Prescriptions: Ibuprofen [Motrin] 600 mg PO Q8H PRN #30 tablet PRN Reason: Pain Labetalol [Normodyne TAB] 300 mg PO BID #60 tablet NIFEdipine XL [Procardia Xl] 60 mg PO QDAY #30 tablet oxyCODONE /ACETAMINOPHEN [Percocet 5/325] 1 tab PO Q6HR PRN #30 tablet PRN Reason: Pain - Provider Discharge Summary Activity: no sex for 6 weeks, no heavy lifting 4 weeks, no strenuous exercise Diet: routine Instructions: routine Additional instructions: [] Smoking cessation referral if applicable(refer to patient education folder for contact #) [] Refer to [facility]'s [facility] Booklet Call your doctor immediately for: * Fever > 100.5 * Heavy vaginal bleeding ( >1 pad per hour) * Severe persistent headache * Shortness of breath * Reddened, hot, painful area to leg or breast * schedule followup in 2 weeks for blood pressure monitoring * [facility] * [address] [place] [address] rd * [phone] - Follow up plan
[2017-12-30] MEDS: PROCARDIA XL PO SCH (10:47)
[2017-12-30] MEDS: NORMODYNE PO SCH (10:47)
== END 2017-12-30 11:54 | disposition home or self-care (01) | DRG 775 ==
LOC: ED 08:40 → APU 12:31 → LD 13:43 → OB 22:35
PROVIDERS: ADMIT Obstetrics & Gynecology; ATTEND Obstetrics & Gynecology
PROC: 10E0XZZ Delivery of Products of Conception, External Approach (ICD-10-PCS; principal; 2017-12-26)
PROC: 3E0P7VZ Introduction of Hormone into Female Reproductive, Via Natural or Artificial Opening (ICD-10-PCS; 2017-12-26)
DX: O14.24 HELLP syndrome, complicating childbirth (principal); O36.4XX0 Maternal care for intrauterine death, not applicable or unspecified; I16.1 Hypertensive emergency; Z68.41 Body mass index [BMI] 40.0-44.9, adult; O41.03X0 Oligohydramnios, third trimester, not applicable or unspecified; O99.12 Other diseases of the blood and blood-forming organs and certain disorders involving the immune mechanism complicating childbirth; Z3A.29 29 weeks gestation of pregnancy; Z37.1 Single stillbirth; O14.14 Severe pre-eclampsia complicating childbirth; M32.9 Systemic lupus erythematosus, unspecified; O11.4 Pre-existing hypertension with pre-eclampsia, complicating childbirth; O09.33 Supervision of pregnancy with insufficient antenatal care, third trimester
CPT/HCPCS: 36415; 76805; 80053; 80307; 81001; 83615; 83735; 84550; 84702; 85014; 85018; 85025; 85027; 86850; 86900; 86901; 88307; 93005; 93010; 99291; J2590; J3010; J3475; J7120

== ENCOUNTER 2018-06-12 08:37 | Emergency (ER) | payer MEDICAID ==
[2018-06-12] MEDS ORDERED: XYLOCAINE 1% 20 mL INFILTRATI ONE (09:09)
[2018-06-12] MEDS ORDERED: NORCO 5/325 PO ONE (09:09)
--- NOTE | 2018-06-12 09:25 | Emergency Department Report ---
Blank Doc - Documentation Documentation: 32-year-old female presents to the hospital with right thumb pain and swelling. She is right-hand dominant. She accidentally hit the thumb one week ago. She now has pain tired and swelling with a yellow discoloration of the nail bed and lateral nail folds. X-ray ordered. As per medical record patient received a tetanus 07/26/2015. [place] ordered for pain. Patient set up for paronychia drainage. Mid-level to follow
--- NOTE | 2018-06-12 10:30 | Emergency Department Report ---
- General Chief Complaint: Extremity Injury, Upper Stated Complaint: SWOLLEN RIGHT HAND Time Seen by Provider: 06/12/18 09:03 Source: patient Mode of arrival: Ambulatory Limitations: No Limitations - History of Present Illness Initial Comments: 32-year-old female presents to the hospital with right thumb pain and swelling. She is right-hand dominant. She accidentally hit the thumb one week ago. She now has pain tired and swelling with a yellow discoloration of the nail bed and lateral nail folds. X-ray ordered. As per medical record patient received a tetanus 07/26/2015. [place] ordered for pain. Patient set up for paronychia drainage. Extremity Location: Right: Hand (thumb) Context: accidental Associated Symptoms: pain - Related Data Previous Rx's Medication Instructions Recorded Last Taken Type Acetaminophen [Non-Aspirin Pain 500 mg PO Q8H PRN #12 tablet 11/17/16 Unknown Rx Relief] Amoxicillin/K Clav Tab [Augmentin 1 tab PO Q12HR #20 tab 01/16/17 Unknown Rx 875 mg] Cetirizine HCl [ZyrTEC] 10 mg PO DAILY #30 capsule 01/16/17 Unknown Rx Fluticasone [Flonase] 1 spray NS QDAY #1 bottle 01/16/17 Unknown Rx Ibuprofen [Motrin 800 MG tab] 800 mg PO Q8HR PRN #30 tablet 01/16/17 Unknown Rx Ibuprofen [Motrin] 600 mg PO Q8H PRN #30 tablet 12/29/17 Unknown Rx Labetalol [Normodyne TAB] 300 mg PO BID #60 tablet 12/29/17 Unknown Rx NIFEdipine XL [Procardia Xl] 60 mg PO QDAY #30 tablet 12/29/17 Unknown Rx oxyCODONE /ACETAMINOPHEN [Percocet 1 tab PO Q6HR PRN #30 tablet 12/29/17 Unknown Rx 5/325] Allergies Allergy/AdvReac Type Severity Reaction Status Date / Time amoxicillin Allergy Dizziness Verified 06/12/18 09:12 Penicillins Allergy Dizziness Verified 06/12/18 09:12 heparin AdvReac Unknown Verified 06/12/18 08:41 ED Review of Systems ROS: Stated complaint: SWOLLEN RIGHT HAND Other details as noted in HPI ED Past Medical Hx - Past Medical History Hx Hypertension: Yes (curently has high blood pressure) Hx Congestive Heart Failure: No Hx Diabetes: No Hx Deep Vein Thrombosis: No Hx Renal Disease: Yes Hx Sickle Cell Disease: No Hx Seizures: No Hx Asthma: No Hx COPD: No Hx HIV: No Additional medical history: Lupus. Hx pericarditis. Kidney function decreased and has been on Hemodialysis before - Surgical History Additional Surgical History: Removal of fluid from around heart. - Social History Smoking Status: Never Smoker Substance Use Type: None - Medications Home Medications: Home Medications Medication Instructions Recorded Confirmed Last Taken Type Acetaminophen [Non-Aspirin Pain 500 mg PO Q8H PRN #12 tablet 11/17/16 12/26/17 Unknown Rx Relief] Amoxicillin/K Clav Tab [Augmentin 1 tab PO Q12HR #20 tab 01/16/17 12/26/17 Unknown Rx 875 mg] Cetirizine HCl [ZyrTEC] 10 mg PO DAILY #30 capsule 01/16/17 12/26/17 Unknown Rx Fluticasone [Flonase] 1 spray NS QDAY #1 bottle 01/16/17 12/26/17 Unknown Rx Ibuprofen [Motrin 800 MG tab] 800 mg PO Q8HR PRN #30 tablet 01/16/17 12/26/17 Unknown Rx Ibuprofen [Motrin] 600 mg PO Q8H PRN #30 tablet 12/29/17 Unknown Rx Labetalol [Normodyne TAB] 300 mg PO BID #60 tablet 12/29/17 Unknown Rx NIFEdipine XL [Procardia Xl] 60 mg PO QDAY #30 tablet 12/29/17 Unknown Rx oxyCODONE /ACETAMINOPHEN [Percocet 1 tab PO Q6HR PRN #30 tablet 12/29/17 Unknown Rx 5/325] ED Physical Exam - General Limitations: No Limitations General appearance: alert, in no apparent distress - Head Head exam: Present: atraumatic, normocephalic - Respiratory Respiratory exam: Present: normal lung sounds bilaterally. Absent: respiratory distress - Cardiovascular Cardiovascular Exam: Present: regular rate, normal rhythm. Absent: systolic murmur, diastolic murmur, rubs, gallop - Expanded Upper Extremity Exam Right Hand Wrist exam: Present: other (right thumb swelling to pad and knuckle extending proximal joint, decreased range of motion secondary to swelling and pain tenderness to the pad and cuticle nail bed tenderness, appreciate purulent fluid under nail bed. Pulses are intact) Neuro motor exam: Present: wrist extension intact, thumb opposition intact, thumb IP flexion intact, thumb adduction intact, fingers 2-5 abduction intact Vascular: Present: normal capillary refill - Neurological Exam Neurological exam: Present: alert, oriented X3 - Psychiatric Psychiatric exam: Present: normal affect, normal mood - Skin Skin exam: Present: warm, dry, intact, normal color. Absent: rash ED Course Vital Signs 06/12/18 08:41 Temperature 97.8 F Pulse Rate 93 H Respiratory 20 Rate Blood Pressure 151/107 O2 Sat by Pulse 97 Oximetry ED Medical Decision Making - Lab Data Result diagrams: 06/12/18 10:56 06/12/18 10:53 - Radiology Data Radiology results: report reviewed FINAL REPORT EXAM: XR FINGER(S) 2+V RT HISTORY: thumb injury COMPARISON: None. TECHNIQUE: Four views of the right thumb FINDINGS: There is erosion of the tuft of the distal phalanx of the thumb along ulnar aspect. There is overlying soft tissue swelling. There is no radiopaque foreign body. The remainder of the bones are intact. IMPRESSION: Erosion of the tuft of the distal phalanx of the thumb along the ulnar aspect. Findings are concerning for osteomyelitis. Transcribed By: FARSHAD Dictated By: CHLOE BUENROSTRO MD Electronically Authenticated By: CHLOE BUENROSTRO MD Signed Date/Time: 06/12/18 1043 DD/ 1041 TD/TT: 06/12/18 1041 - Medical Decision Making Patient has been evaluated by this provider in fast track as well as Dr. Napier. CBC CMP him a ESR and x-ray of right thumb. Elevated ESR 66 x-ray of right thumb shows osteomyelitis Patient was given vancomycin 2 g IV with 500 mL's of normal saline. Call made to [facility] spoke to Dr. Norris from [facility] he accepted patient. Patient be transferred to the ER to ER. Critical care attestation.: If time is entered above; I have spent that time in minutes in the direct care of this critically ill patient, excluding procedure time. ED Disposition Clinical Impression: Osteomyelitis of finger of right hand, Cellulitis and abscess of finger, unspecified, Paronychia of finger of right hand Disposition: DC/TX-70 ANOTHER TYPE HLTHCARE Is pt being admited?: No Does the pt Need Aspirin: No Condition: Stable Additional Instructions: Patient with the transfer to [facility] to be evaluated. Spoke with Dr. Norris. Referrals: JEFF LOWE MD [Primary Care Provider] - 3-5 Days
--- NOTE | 2018-06-12 10:43 | XRay Report ---
FINAL REPORT EXAM: XR FINGER(S) 2+V RT HISTORY: thumb injury COMPARISON: None. TECHNIQUE: Four views of the right thumb FINDINGS: There is erosion of the tuft of the distal phalanx of the thumb along ulnar aspect. There is overlyin g soft tissue swelling. There is no radiopaque foreign body. The remainder of the bones are intact. IMPRESSION: Erosion of the tuft of the distal phalanx of the thumb along the ulnar aspect. Findings are concernin g for osteomyelitis.
[2018-06-12 11:16] LABS: Basophils % (Auto) 0.7 % (0.0-1.8); Eosinophils # (Auto) 0.2 K/mm3 (0.0-0.4); Eosinophils % (Auto) 2.9 % (0.0-4.3); Hematocrit 39.4 % (30.3-42.9); Hemoglobin 13.1 gm/dl (10.1-14.3); Lymphocytes # (Auto) 1.4 K/mm3 (1.2-5.4); Lymphocytes % (Auto) 23.7 % (13.4-35.0); Mean Corpuscular HGB Conc 33 % (30-34); Mean Corpuscular Volume 82 fl (79-97); Monocytes # (Auto) 0.5 K/mm3 (0.0-0.8); Monocytes % (Auto) 8.9 % (0.0-7.3); Platelet Count 341 K/mm3 (140-440); Red Cell Distribution Width 14.3 % (13.2-15.2)
[2018-06-12 11:22] LABS: BUN/Creatinine Ratio 16; Blood Urea Nitrogen 11 mg/dL (7-17); Calcium 8.7 mg/dL (8.4-10.2); Hemolysis Index 22
[2018-06-12] MEDS ORDERED: VANCOMYCIN 2,000 MG in NACL 0.9% 500 ML 500 ML IV ONE (12:00)
[2018-06-12 12:08] LABS: Erythrocyte Sedimentation Rate 66 mm/Hr (0-20)
[2018-06-13 13:44] VITALS: BP 145/105
== END 2018-06-12 14:25 | disposition other institution (70) ==
LOC: ED 08:37
DX: L03.011 Cellulitis of right finger (principal); I10 Essential (primary) hypertension; M32.9 Systemic lupus erythematosus, unspecified; Z88.0 Allergy status to penicillin; Z88.1 Allergy status to other antibiotic agents
CPT/HCPCS: 36415; 73140; 80048; 85025; 85652; 96365; 96366; 99285; J3370; J7040

== ENCOUNTER 2018-11-05 18:45 | Inpatient (IN) | payer MEDICAID, OTHER ==
--- NOTE | 2018-11-05 19:14 | Event Note ---
ED Screening Note Date of service: 11/05/18 Time: 19:10 ED Screening Note: This is a 33 y.o. F. that presents to the ER with dizziness while at work today. PMH: HLD, renal insufficiency, lupus, and arthritis. Denies N/V/D This initial assessment/diagnostic orders/clinical plan/treatment(s) is/are subject to change based on patients health status, clinical progression and re- assessment by fellow clinical providers in the ED. Further treatment and workup at subsequent clinical providers discretion. Patient/guardian urged not to elope from the ED as their condition may be serious if not clinically assessed and managed. Initial orders include: POC glucose 83.
--- NOTE | 2018-11-05 22:21 | Emergency Department Report ---
ED General Adult HPI - General Chief complaint: Dizziness Stated complaint: SOB/DIZZINESS Time Seen by Provider: 11/05/18 19:09 Source: patient, RN notes reviewed, old records reviewed Mode of arrival: Ambulatory Limitations: No Limitations - History of Present Illness Initial comments: This is a pleasant 33-year-old female. The patient is not known to this provider previously. The patient reportedly has a history of severe preeclampsia, however, she reports that she is not today. Patient also reports that she has not delivered given within the past 6 weeks. Additional past medical history includes high blood pressure, lupus, renal disease, history of pericarditis, patient has been on hemodialysis in the past. She is not currently on dialysis. She presents to the ER today with complaint of painless nontraumatic shortness of breath and lightheadedness. Patient works at [employer]. She reports working consistently, typically does not have any issues working. However, today, she reports that she was working, leaned over to pick something up, and then felt lightheaded. She also felt like she was going to fall to the side. She also describes shortness of breath. This is all new. The symptoms are intermittent and they're painless. They did not radiate anywhere. The patient denies leg pain and leg swelling. The patient also endorses binocular blurry vision. This is now improved. She currently denies headache, neck pain, chest pain, abdominal pain. She denies urinary symptoms. She denies focal extremity weakness or numbness. -: Sudden Consistency: intermittent Improves with: rest Worsens with: movement - Related Data Previous Rx's Medication Instructions Recorded Last Taken Type Acetaminophen [Non-Aspirin Pain 500 mg PO Q8H PRN #12 tablet 11/17/16 Unknown Rx Relief] Amoxicillin/K Clav Tab [Augmentin 1 tab PO Q12HR #20 tab 01/16/17 Unknown Rx 875 mg] Cetirizine HCl [ZyrTEC] 10 mg PO DAILY #30 capsule 01/16/17 Unknown Rx Fluticasone [Flonase] 1 spray NS QDAY #1 bottle 01/16/17 Unknown Rx Ibuprofen [Motrin 800 MG tab] 800 mg PO Q8HR PRN #30 tablet 01/16/17 Unknown Rx Ibuprofen [Motrin] 600 mg PO Q8H PRN #30 tablet 08/21/18 Unknown Rx Labetalol [Labetalol 100mg TAB] 300 mg PO BID #60 tablet 12/29/17 Unknown Rx NIFEdipine XL [Procardia Xl] 60 mg PO QDAY #30 tablet 12/29/17 Unknown Rx oxyCODONE /ACETAMINOPHEN [Percocet 1 tab PO Q6HR PRN #30 tablet 12/29/17 Unknown Rx 5/325] Allergies Allergy/AdvReac Type Severity Reaction Status Date / Time amoxicillin Allergy Dizziness Verified 11/05/18 18:58 Penicillins Allergy Dizziness Verified 11/05/18 18:58 heparin AdvReac Unknown Verified 11/05/18 18:58 ED Review of Systems ROS: Stated complaint: SOB/DIZZINESS Other details as noted in HPI Constitutional: malaise. denies: fever Eyes: vision change. denies: eye discharge ENT: denies: epistaxis Respiratory: shortness of breath Cardiovascular: other (question near-syncope, patient is not sure if she felt like she was going to pass out or not). denies: chest pain Gastrointestinal: denies: abdominal pain, nausea, vomiting, hematemesis, melena, hematochezia Genitourinary: denies: dysuria Musculoskeletal: denies: back pain Skin: denies: lesions Neurological: weakness. denies: numbness, paresthesias, confusion, vertigo Psychiatric: denies: anxiety ED Past Medical Hx - Past Medical History Previous Medical History?: Yes Hx Hypertension: Yes (curently has high blood pressure) Hx Congestive Heart Failure: No Hx Diabetes: No Hx Deep Vein Thrombosis: No Hx Renal Disease: Yes Hx Sickle Cell Disease: No Hx Seizures: No Hx Asthma: No Hx COPD: No Hx HIV: No Additional medical history: Lupus. Hx pericarditis. Kidney function decreased and has been on Hemodialysis before - Surgical History Past Surgical History?: Yes Additional Surgical History: Removal of fluid from around heart. - Social History Smoking Status: Never Smoker Substance Use Type: None - Medications Home Medications: Home Medications Medication Instructions Recorded Confirmed Last Taken Type Acetaminophen [Non-Aspirin Pain 500 mg PO Q8H PRN #12 tablet 11/17/16 12/26/17 Unknown Rx Relief] Amoxicillin/K Clav Tab [Augmentin 1 tab PO Q12HR #20 tab 01/16/17 12/26/17 Unknown Rx 875 mg] Cetirizine HCl [ZyrTEC] 10 mg PO DAILY #30 capsule 01/16/17 12/26/17 Unknown Rx Fluticasone [Flonase] 1 spray NS QDAY #1 bottle 01/16/17 12/26/17 Unknown Rx Ibuprofen [Motrin 800 MG tab] 800 mg PO Q8HR PRN #30 tablet 01/16/17 12/26/17 Unknown Rx Ibuprofen [Motrin] 600 mg PO Q8H PRN #30 tablet 12/29/17 Unknown Rx Labetalol [Labetalol 100mg TAB] 300 mg PO BID #60 tablet 12/29/17 Unknown Rx NIFEdipine XL [Procardia Xl] 60 mg PO QDAY #30 tablet 12/29/17 Unknown Rx oxyCODONE /ACETAMINOPHEN [Percocet 1 tab PO Q6HR PRN #30 tablet 12/29/17 Unknown Rx 5/325] ED Physical Exam - General Limitations: No Limitations General appearance: alert, in no apparent distress - Head Head exam: Present: atraumatic, normocephalic - Eye Eye exam: Present: normal appearance, PERRL, EOMI, other (visual acuity intact to finger counting, color perception, reading at a close distance). Absent: nystagmus - ENT ENT exam: Present: normal exam, normal orophraynx, mucous membranes moist, normal external ear exam - Neck Neck exam: Present: normal inspection, full ROM. Absent: tenderness, meningismus - Respiratory Respiratory exam: Present: normal lung sounds bilaterally. Absent: respiratory distress - Cardiovascular Cardiovascular Exam: Present: regular rate, normal rhythm, normal heart sounds. Absent: bradycardia, tachycardia, irregular rhythm, systolic murmur, diastolic murmur, rubs, gallop - GI/Abdominal GI/Abdominal exam: Present: soft. Absent: distended, tenderness, guarding, rebound, rigid, pulsatile mass - Extremities Exam Extremities exam: Present: normal inspection, full ROM, other (2+ pulses noted in the bilateral upper, lower extremities. Compartments soft. No long bony tenderness. The pelvis is stable.). Absent: pedal edema, calf tenderness - Back Exam Back exam: Present: normal inspection, full ROM. Absent: tenderness, CVA tenderness (R), CVA tenderness (L), paraspinal tenderness - Neurological Exam Neurological exam: Present: alert (Extraocular movements intact. Tongue midline. No facial droop. Facial sensation intact to light touch in the V1, V2, V3 distribution bilaterally. 5 and 5 strength in 4 extremities.. Sensation is intact to light touch in 4 extremities.), oriented X3, CN II-XII intact, normal gait (there is no pass pointing. There is no pronator drift. There is normal [id number]. There is normal gait. There is normal tendon gait.), other. Absent: motor sensory deficit - Psychiatric Psychiatric exam: Present: anxious - Skin Skin exam: Present: warm, dry, intact, normal color. Absent: rash ED Course Vital Signs 11/05/18 11/05/18 11/05/18 19:09 22:31 22:45 Temperature 97.9 F Pulse Rate 89 77 Pulse Rate [ Lying] Pulse Rate [ Sitting] Pulse Rate [ Standing] Respiratory 18 24 Rate Blood Pressure 115/82 111/77 Blood Pressure [Lying] Blood Pressure [Sitting] Blood Pressure [Standing] O2 Sat by Pulse 97 100 98 Oximetry 11/06/18 00:25 Temperature Pulse Rate Pulse Rate [ 80 Lying] Pulse Rate [ 83 Sitting] Pulse Rate [ 88 Standing] Respiratory Rate Blood Pressure Blood Pressure 120/78 [Lying] Blood Pressure 128/88 [Sitting] Blood Pressure 128/90 [Standing] O2 Sat by Pulse Oximetry - Reevaluation(s) Reevaluation #1: 11/06/18 00:20 Differential diagnosis, including but not limited to: Orthostasis, vagal event, structural cardiac disease, dehydration, electrolyte derangement, pulmonary embolism Assessment and plan: 33-year-old female with multiple vascular risk factors, coming in today with nonspecific resolve binocular blurry vision, nonspecific dizziness, nonspecific shortness of breath. The patient is afebrile with reassuring vital signs. Her physical examination appears to be within normal limits and is unremarkable. She has a GCS of 15, and an NIH score of 0. Her objective laboratory testing appears to be unremarkable so far. Her EKG today is abnormal, and demonstrates multiple changes when compared to a prior EKG. Given history of lupus, shortness of breath, nonspecific dizziness, numerous T- wave abnormalities, d-dimer is sent, elevated, and CT scan of the chest will be ordered. Patient is not having chest pain at this time. CT scan of the chest has been ordered. Noncontrast CT scan of the brain is negative. X-ray of the chest nonspecific. Reevaluation #2: 11/06/18 01:51 Patient appears comfortable. Patient in no acute distress. Discussed recommendations with patient, given complex past medical history, nature of patient's described symptoms, EKG changes, we will admit the patient to the medical service for further evaluation. Because of technical issues, the radiology group has not interpreted the CT scan of the chest. We do not suspect dissection at this time. The hospital physician, Dr. Polina BROWNING will admit the patient to the medical service. Reevaluation #3: 11/06/18 02:00 CT scan of the chest was negative for acute disease ED Medical Decision Making - Lab Data Result diagrams: 11/05/18 23:05 11/05/18 23:05 Vital Signs 11/05/18 19:09 Temperature 97.9 F Pulse Rate 89 Respiratory 18 Rate Blood Pressure 115/82 O2 Sat by Pulse 97 Oximetry Lab Results 11/05/18 11/05/18 11/05/18 Range/Units 19:22 22:36 23:05 WBC 8.5 (4.5-11.0) K/mm3 RBC 4.96 (3.65-5.03) M/mm3 Hgb 13.7 (10.1-14.3) gm/dl Hct 40.4 (30.3-42.9) % MCV 82 (79-97) fl MCH 28 (28-32) pg MCHC 34 (30-34) % RDW 15.4 H (13.2-15.2) % Plt Count 355 (140-440) K/mm3 Lymph % (Auto) 24.5 (13.4-35.0) % [place] % (Auto) 8.6 H (0.0-7.3) % Eos % (Auto) 1.5 (0.0-4.3) % Baso % (Auto) 0.9 (0.0-1.8) % Lymph # 2.1 (1.2-5.4) K/mm3 [place] # 0.7 (0.0-0.8) K/mm3 Eos # 0.1 (0.0-0.4) K/mm3 Baso # 0.1 (0.0-0.1) K/mm3 Seg Neutrophils % 64.5 (40.0-70.0) % Seg Neutrophils # 5.5 (1.8-7.7) K/mm3 PT (12.2-14.9) Sec. INR (0.87-1.13) D-Dimer (0-234) ng/mlDDU Sodium (137-145) mmol/L Potassium (3.6-5.0) mmol/L Chloride (98-107) mmol/L Carbon Dioxide (22-30) mmol/L Anion Gap mmol/L BUN (7-17) mg/dL Creatinine (0.7-1.2) mg/dL Estimated GFR ml/min BUN/Creatinine Ratio % Glucose (65-100) mg/dL POC Glucose 83 110 H (70-105) Calcium (8.4-10.2) mg/dL Magnesium (1.7-2.3) mg/dL Total Bilirubin (0.1-1.2) mg/dL AST (5-40) units/L ALT (7-56) units/L Alkaline Phosphatase (35-129) units/L Total Creatine Kinase (30-135) units/L Troponin T (0.00-0.029) ng/mL Total Protein (6.3-8.2) g/dL Albumin (3.9-5) g/dL Albumin/Globulin Ratio % HCG, Quant (0-4) mIU/mL 11/05/18 11/05/18 11/05/18 Range/Units 23:05 23:05 23:05 WBC (4.5-11.0) K/mm3 RBC (3.65-5.03) M/mm3 Hgb (10.1-14.3) gm/dl Hct (30.3-42.9) % MCV (79-97) fl MCH (28-32) pg MCHC (30-34) % RDW (13.2-15.2) % Plt Count (140-440) K/mm3 Lymph % (Auto) (13.4-35.0) % [place] % (Auto) (0.0-7.3) % Eos % (Auto) (0.0-4.3) % Baso % (Auto) (0.0-1.8) % Lymph # (1.2-5.4) K/mm3 [place] # (0.0-0.8) K/mm3 Eos # (0.0-0.4) K/mm3 Baso # (0.0-0.1) K/mm3 Seg Neutrophils % (40.0-70.0) % Seg Neutrophils # (1.8-7.7) K/mm3 PT 13.8 (12.2-14.9) Sec. INR 1.09 (0.87-1.13) D-Dimer 1324.35 H (0-234) ng/mlDDU Sodium 137 (137-145) mmol/L Potassium 4.6 (3.6-5.0) mmol/L Chloride 99.5 (98-107) mmol/L Carbon Dioxide 24 (22-30) mmol/L Anion Gap 18 mmol/L BUN 20 H (7-17) mg/dL Creatinine 1.4 H (0.7-1.2) mg/dL Estimated GFR 53 ml/min BUN/Creatinine Ratio 14 % Glucose 71 (65-100) mg/dL POC Glucose (70-105) Calcium 9.5 (8.4-10.2) mg/dL Magnesium 2.10 (1.7-2.3) mg/dL Total Bilirubin 0.70 (0.1-1.2) mg/dL AST 21 (5-40) units/L ALT 14 (7-56) units/L Alkaline Phosphatase 77 (35-129) units/L Total Creatine Kinase 259 H (30-135) units/L Troponin T < 0.010 (0.00-0.029) ng/mL Total Protein 9.6 H (6.3-8.2) g/dL Albumin 3.9 (3.9-5) g/dL Albumin/Globulin Ratio 0.7 % HCG, Quant (0-4) mIU/mL 11/05/18 Range/Units 23:05 WBC (4.5-11.0) K/mm3 RBC (3.65-5.03) M/mm3 Hgb (10.1-14.3) gm/dl Hct (30.3-42.9) % MCV (79-97) fl MCH (28-32) pg MCHC (30-34) % RDW (13.2-15.2) % Plt Count (140-440) K/mm3 Lymph % (Auto) (13.4-35.0) % [place] % (Auto) (0.0-7.3) % Eos % (Auto) (0.0-4.3) % Baso % (Auto) (0.0-1.8) % Lymph # (1.2-5.4) K/mm3 [place] # (0.0-0.8) K/mm3 Eos # (0.0-0.4) K/mm3 Baso # (0.0-0.1) K/mm3 Seg Neutrophils % (40.0-70.0) % Seg Neutrophils # (1.8-7.7) K/mm3 PT (12.2-14.9) Sec. INR (0.87-1.13) D-Dimer (0-234) ng/mlDDU Sodium (137-145) mmol/L Potassium (3.6-5.0) mmol/L Chloride (98-107) mmol/L Carbon Dioxide (22-30) mmol/L Anion Gap mmol/L BUN (7-17) mg/dL Creatinine (0.7-1.2) mg/dL Estimated GFR ml/min BUN/Creatinine Ratio % Glucose (65-100) mg/dL POC Glucose (70-105) Calcium (8.4-10.2) mg/dL Magnesium (1.7-2.3) mg/dL Total Bilirubin (0.1-1.2) mg/dL AST (5-40) units/L ALT (7-56) units/L Alkaline Phosphatase (35-129) units/L Total Creatine Kinase (30-135) units/L Troponin T (0.00-0.029) ng/mL Total Protein (6.3-8.2) g/dL Albumin (3.9-5) g/dL Albumin/Globulin Ratio % HCG, Quant < 2 (0-4) mIU/mL - EKG Data -: EKG Interpreted by Oh - EKG Data 11/06/18 00:22 EKG today shows a normal sinus rhythm, 70 bpm, normal axis, QTC prolonged, T wave inversions V2, V3, V4 and V5, borderline atrial enlargement, T wave inversions 1 and aVL, compared to prior EKG from December 2017, T-wave abnormalities appear to be new. These T-wave abnormalities are unlikely to be consistent with persistent juvenile T-wave inversion. This EKG is not consistent with an ST elevation myocardial infarction. - Radiology Data Radiology results: report reviewed, image reviewed Noncontrast CT scan of the brain negative for acute disease Critical care attestation.: If time is entered above; I have spent that time in minutes in the direct care of this critically ill patient, excluding procedure time. ED Disposition Clinical Impression: Near syncope, Acute electrocardiogram changes, Shortness of breath Disposition: OP ADMIT IP TO THIS HOSP Is pt being admited?: Yes Does the pt Need Aspirin: Yes Condition: Stable Referrals: YUNG VIEIRA MD [Primary Care Provider] - 3-5 Days
[2018-11-05 23:14] LABS: Basophils # (Auto) 0.1 K/mm3 (0.0-0.1); Basophils % (Auto) 0.9 % (0.0-1.8); Eosinophils # (Auto) 0.1 K/mm3 (0.0-0.4); Eosinophils % (Auto) 1.5 % (0.0-4.3); Hematocrit 40.4 % (30.3-42.9); Hemoglobin 13.7 gm/dl (10.1-14.3); Lymphocytes # (Auto) 2.1 K/mm3 (1.2-5.4); Lymphocytes % (Auto) 24.5 % (13.4-35.0); Mean Corpuscular HGB Conc 34 % (30-34); Mean Corpuscular Volume 82 fl (79-97); Monocytes # (Auto) 0.7 K/mm3 (0.0-0.8); Monocytes % (Auto) 8.6 % (0.0-7.3); Platelet Count 355 K/mm3 (140-440); Red Blood Count 4.96 M/mm3 (3.65-5.03); Red Cell Distribution Width 15.4 % (13.2-15.2)
[2018-11-05 23:25] LABS: INR 1.09 (0.87-1.13)
[2018-11-05 23:39] LABS: Alanine Aminotransferase 14 units/L (7-56); Albumin 3.9 g/dL (3.9-5); BUN/Creatinine Ratio 14; Blood Urea Nitrogen 20 mg/dL (7-17); Calcium 9.5 mg/dL (8.4-10.2); Hemolysis Index 16
--- NOTE | 2018-11-05 23:42 | Cat Scan Report ---
PROCEDURE: CT head without contrast. TECHNIQUE: Computerized tomography of the head was performed without contrast material. CT DOSE LENGTH PRODUCT: 920.48 mGycm HISTORY: Lightheadedness/Dizziness COMPARISONS: None. FINDINGS: The ventricles are normal in size. The paredes matter and white matter appear normal. There are no mass lesions. There is no intracranial hemorrhage. The calvarium appears intact. The mastoid air cells and visualized paranasal sinuses are well aerated. IMPRESSION: Normal study. This document is electronically signed by Jose Linda MD., November 05 2018 11:40:50 PM ET
[2018-11-05] MEDS ORDERED: NACL 0.9% 1000 ML 1,000 ML IV ONE (23:55)
--- NOTE | 2018-11-06 00:25 | XRay Report ---
PROCEDURE: XR CHEST ROUTINE 2V TECHNIQUE: PA and lateral chest radiographs were obtained. HISTORY: Lightheadedness/Dizziness COMPARISONS: Prior chest x-ray 06/30/2011. FINDINGS: Heart: Mildly enlarged. Mediastinum/Vessels: Upper lobe vasculature mildly distended although sharply defined. No pulmonary e garrick is seen.. Lungs/Pleural space: No infiltrates or masses are identified. The pleural stripe on the left lateral ly is mildly prominent or thickened and there is some blunting of the left lateral costophrenic angle . There may be a small left effusion. Bony thorax: No acute osseous abnormality. IMPRESSION: Mild cardiomegaly. There is also mild pulmonary venous hypertension changes. No pulmonary edema, infiltrates or masses are identified. Mild thickening left pleural stripe suggesting small left effusion. This document is electronically signed by Wade Buck MD., November 06 2018 12:22:25 AM ET
--- NOTE | 2018-11-06 01:53 | Cat Scan Report ---
PROCEDURE: CT angiogram chest with contrast. TECHNIQUE: Computerized tomographic angiography of the chest was performed after the IV injection of iodinated nonionic contrast including image processing. The image data was postprocessed using 2-di mensional multiplanar reformatted (MPR) and 3-dimensional (MIP and/or volume rendered) techniques. Au tomated exposure control, adjustment of mA and/or kV according to patient size, or iterative reconstr uction dose optimization techniques were utilized. CT DOSE LENGTH PRODUCT: 887.94 mGycm HISTORY: sob ekg changes near syncope COMPARISONS: None. FINDINGS: The trachea and central bronchi appear normal. The lungs are grossly clear. There is mild groundglass opacity in the dependent portions of both lower lobes. This probably represents subsegmental atelect asis. There is a small posterior diaphragmatic hernia on the left. This contains abdominal fat. There is a trace amount of left pleural fluid. The thoracic aorta has a normal caliber without evidence of dissection. The pulmonary arteries enhance normally. There are no filling defects to indicate pulmon herberth embolism. There is no mediastinal adenopathy. The heart size is mildly enlarged. The adrenal glan ds are normal in size. The thoracic skeleton appears intact. IMPRESSION: No evidence of pulmonary embolism. Trace amount of left pleural fluid. This document is electronically signed by Jose Linda MD., November 06 2018 01:51:37 AM ET
[2018-11-06] MEDS ORDERED: ZOFRAN IV PRN (02:09)
[2018-11-06] MEDS ORDERED: TYLENOL PO PRN (02:09)
[2018-11-06] MEDS ORDERED: SODIUM CHLORIDE FLUSH SYRINGE 10 ML IV PRN (02:09)
--- NOTE | 2018-11-06 02:18 | History and Physical Report ---
History of Present Illness Date of examination: 11/06/18 Date of admission: 11/06/2018 Chief complaint: Shortness of breath and dizziness History of present illness: Patient is a 33-year-old female with PMHx of HTN, lupus, renal disease (hemodialysis in the past), pericarditis (status post pericardial window), patient presents to the ER today with complaints of dizziness and shortness of breath. Patient states that the symptoms started while she was at work, the shortness of breath was worse with exertion, the symptoms persist throughout the day and she decided to come to the ER for evaluation. Patient denies chest pain at this time, she denies diaphoresis, denies nausea or vomiting, denies diaphoresis, denies recent illness. Patient reports that last hospitalization was in June of this year, she had been fine before the symptoms started to the. In the ER her d-dimer, BUN/creatinine was elevated, patient had a CT of the chest to rule out PE was negative, a CT of the brain was negative she is admitted for further evaluation. Past History Past Medical History: No medical history, hypertension, renal failure (Lupus, pericarditis), other (Lupus,) Past Surgical History: Other (pericardial window) Social history: no significant social history Medications and Allergies Allergies Allergy/AdvReac Type Severity Reaction Status Date / Time amoxicillin Allergy Dizziness Verified 11/05/18 18:58 Penicillins Allergy Dizziness Verified 11/05/18 18:58 heparin AdvReac Unknown Verified 11/05/18 18:58 Home Medications Medication Instructions Recorded Confirmed Last Taken Type Acetaminophen [Non-Aspirin Pain 500 mg PO Q8H PRN #12 tablet 11/17/16 12/26/17 Unknown Rx Relief] Amoxicillin/K Clav Tab [Augmentin 1 tab PO Q12HR #20 tab 01/16/17 12/26/17 Unknown Rx 875 mg] Cetirizine HCl [ZyrTEC] 10 mg PO DAILY #30 capsule 01/16/17 12/26/17 Unknown Rx Fluticasone [Flonase] 1 spray NS QDAY #1 bottle 01/16/17 12/26/17 Unknown Rx Ibuprofen [Motrin 800 MG tab] 800 mg PO Q8HR PRN #30 tablet 01/16/17 12/26/17 Unknown Rx Ibuprofen [Motrin] 600 mg PO Q8H PRN #30 tablet 12/29/17 Unknown Rx Labetalol [Labetalol 100mg TAB] 300 mg PO BID #60 tablet 12/29/17 Unknown Rx NIFEdipine XL [Procardia Xl] 60 mg PO QDAY #30 tablet 12/29/17 Unknown Rx oxyCODONE /ACETAMINOPHEN [Percocet 1 tab PO Q6HR PRN #30 tablet 12/29/17 Unknown Rx 5/325] Review of Systems Constitutional: anorexia Exam - Constitutional Vitals: Temp Pulse Resp BP Pulse Ox 97.9 F 80 24 120/78 98 11/05/18 19:09 11/06/18 00:25 11/05/18 22:45 11/06/18 00:25 11/05/18 22:45 General appearance: Present: no acute distress - EENT Eyes: Present: EOM intact ENT: hearing intact - Neck Neck: Present: normal ROM - Respiratory Respiratory effort: normal Respiratory: bilateral: CTA - Cardiovascular Rhythm: regular Heart Sounds: Present: S1 & S2 - Extremities Extremities: no ischemia, No edema Peripheral Pulses: within normal limits - Abdominal General gastrointestinal: Present: non-tender, non-distended Female genitourinary: Present: deferred - Rectal Rectal Exam: deferred - Integumentary Integumentary: Present: warm - Musculoskeletal Musculoskeletal: strength equal bilaterally - Psychiatric Psychiatric: cooperative - Neurologic Neurologic: focal deficits, moves all extremities Results - Labs CBC & Chem 7: 11/05/18 23:05 11/05/18 23:05 Labs: Laboratory Last Values WBC 8.5 K/mm3 (4.5-11.0) 11/05/18 23:05 RBC 4.96 M/mm3 (3.65-5.03) 11/05/18 23:05 Hgb 13.7 gm/dl (10.1-14.3) 11/05/18 23:05 Hct 40.4 % (30.3-42.9) 11/05/18 23:05 MCV 82 fl (79-97) 11/05/18 23:05 MCH 28 pg (28-32) 11/05/18 23:05 MCHC 34 % (30-34) 11/05/18 23:05 RDW 15.4 % (13.2-15.2) H 11/05/18 23:05 Plt Count 355 K/mm3 (140-440) 11/05/18 23:05 Lymph % (Auto) 24.5 % (13.4-35.0) 11/05/18 23:05 [place] % (Auto) 8.6 % (0.0-7.3) H 11/05/18 23:05 Eos % (Auto) 1.5 % (0.0-4.3) 11/05/18 23:05 Baso % (Auto) 0.9 % (0.0-1.8) 11/05/18 23:05 Lymph # 2.1 K/mm3 (1.2-5.4) 11/05/18 23:05 [place] # 0.7 K/mm3 (0.0-0.8) 11/05/18 23:05 Eos # 0.1 K/mm3 (0.0-0.4) 11/05/18 23:05 Baso # 0.1 K/mm3 (0.0-0.1) 11/05/18 23:05 Seg Neutrophils % 64.5 % (40.0-70.0) 11/05/18 23:05 Seg Neutrophils # 5.5 K/mm3 (1.8-7.7) 11/05/18 23:05 PT 13.8 Sec. (12.2-14.9) 11/05/18 23:05 INR 1.09 (0.87-1.13) 11/05/18 23:05 1324.35 ng/mlDDU (0-234) H 11/05/18 23:05 Sodium 137 mmol/L (137-145) 11/05/18 23:05 Potassium 4.6 mmol/L (3.6-5.0) 11/05/18 23:05 Chloride 99.5 mmol/L (98-107) 11/05/18 23:05 Carbon Dioxide 24 mmol/L (22-30) 11/05/18 23:05 18 mmol/L 11/05/18 23:05 BUN 20 mg/dL (7-17) H 11/05/18 23:05 1.4 mg/dL (0.7-1.2) H 11/05/18 23:05 Estimated GFR 53 ml/min 11/05/18 23:05 14 % 11/05/18 23:05 Glucose 71 mg/dL (65-100) 11/05/18 23:05 POC Glucose 110 (70-105) H 11/05/18 22:36 Calcium 9.5 mg/dL (8.4-10.2) 11/05/18 23:05 Magnesium 2.10 mg/dL (1.7-2.3) 11/05/18 23:05 0.70 mg/dL (0.1-1.2) 11/05/18 23:05 AST 21 units/L (5-40) 11/05/18 23:05 ALT 14 units/L (7-56) 11/05/18 23:05 77 units/L (35-129) 11/05/18 23:05 259 units/L (30-135) H 11/05/18 23:05 < 0.010 ng/mL (0.00-0.029) 11/06/18 00:10 9.6 g/dL (6.3-8.2) H 11/05/18 23:05 3.9 g/dL (3.9-5) 11/05/18 23:05 0.7 % 11/05/18 23:05 HCG, Quant < 2 mIU/mL (0-4) 11/05/18 23:05 Assessment and Plan Assessment and plan: 1. Dizziness 2. Acute dyspnea (negative CT chest) 3. CKD/NINO (was on hemodialysis) 4. Hypertension 5. History of lupus 6. History of pericarditis Plan: Patient is admitted for SOB, dizziness (negative CT of the brain) Echocardiogram in a.m. Continue to monitor cardiac status IV fluid for hydration If patient's condition improved, may DC in a.m. Plan of care was discussed with patient voiced understanding Advance Directives: Yes VTE prophylaxis?: Mechanical Plan of care discussed with patient/family: Yes
[2018-11-06] MEDS ORDERED: NACL 0.45% 1000 ML 1,000 ML IV SCH (03:00)
[2018-11-06] MEDS ORDERED: SODIUM CHLORIDE FLUSH SYRINGE 10 ML IV SCH (10:00)
[2018-11-06 12:22] LABS: Bilirubin,Urine NEG (Negative); Blood,Urine NEG (Negative); Color,Urine Yellow (Yellow); Mucus,Urine FEW /HPF; Urobilinogen,Urine < 2.0 mg/dL (<2.0)
[2018-11-06 12:24] LABS: Amphetamine Screen,Urine PRESUMPTIVE NEGATIVE; Benzodiazepines Screen,Urine PRESUMPTIVE NEGATIVE; Cannabinoid Screen,Urine PRESUMPTIVE NEGATIVE; Cocaine Screen,Urine PRESUMPTIVE NEGATIVE; Methadone Screen,Urine PRESUMPTIVE NEGATIVE; Opiate Screen,Urine PRESUMPTIVE NEGATIVE
--- NOTE | 2018-11-06 14:08 | Discharge Summary ---
Providers - Providers Date of Admission: 11/06/18 05:09 Date of discharge: 11/06/18 Attending physician: ZUNILDA SOLIMAN [facility] Condition: Stable Pertinent studies: CXR Cta chest CT head Hospital course: Patient is a 33-year-old female with PMHx of HTN, lupus, renal disease (hemod ialysis in the past), pericarditis (status post pericardial window), presents to the ER with complaints of dizziness and shortness of breath. Patient states that the symptoms started while she was at work, the shortness of breath was worse with exertion, the symptoms persist throughout the day and she decided to come to the ER for evaluation. In the ER her d-dimer, BUN/creatinine was elevated, patient had a CT of the chest to rule out PE was negative, a CT of the brain was negative, 2d echo showed preserved EF. she was given iv fluid, BP monitored, improved clinically, dizziness resolved, dyspnea resolved. Patient was then discharged home in stable condition. Discharge diagnosis: 1. Dizziness vs Presyncope due to dehydration 2. Acute dyspnea (negative CT chest for PE) - resolved 3. CKD/NINO (was on hemodialysis), Cr stable 4. Hypertension, h/o , stable w/o meds 5. History of lupus, in remission 6. History of pericarditis, stable, no chest pain Disposition: TO HOME OR SELFCARE Time spent for discharge: 34 minutes Core Measure Documentation - Palliative Care Palliative Care/ Comfort Measures: Not Applicable - Core Measures Any of the following diagnoses?: none Exam - Constitutional Vitals: Temp Pulse Resp BP Pulse Ox 97.7 F 67 20 108/70 97 11/06/18 06:16 11/06/18 06:16 11/06/18 06:16 11/06/18 06:16 11/06/18 06:16 General appearance: Present: no acute distress, obese - EENT Eyes: Present: PERRL ENT: hearing intact, clear oral mucosa - Neck Neck: Present: supple, normal ROM - Respiratory Respiratory effort: normal Respiratory: bilateral: CTA - Cardiovascular Heart Sounds: Present: S1 & S2. Absent: rub, click - Extremities Extremities: pulses symmetrical, No edema Peripheral Pulses: within normal limits - Abdominal General gastrointestinal: Present: soft, non-tender, non-distended, normal bowel sounds - Integumentary Integumentary: Present: clear, warm, dry - Musculoskeletal Musculoskeletal: gait normal, strength equal bilaterally - Psychiatric Psychiatric: appropriate mood/affect, intact judgment & insight - Neurologic Neurologic: CNII-XII intact, moves all extremities Plan Activity: advance as tolerated Weight Bearing Status: Weight Bear as Tolerated Diet: low fat, low salt Follow up with: YUNG VIEIRA MD [Primary Care Provider] - 3-5 Days FACUNDO ROCHE MD [Staff Physician] - 7 Days Forms: Work/School Release Form
[2018-11-06 15:42] VITALS: BP 107/64
== END 2018-11-06 18:30 | disposition home or self-care (01) | DRG 641 ==
LOC: ED 18:45 → 3A 11-06 05:09
PROVIDERS: ADMIT Internal Medicine; ATTEND Internal Medicine
DX: E86.0 Dehydration (principal); N17.9 Acute kidney failure, unspecified; M32.9 Systemic lupus erythematosus, unspecified; N18.9 Chronic kidney disease, unspecified; I12.9 Hypertensive chronic kidney disease with stage 1 through stage 4 chronic kidney disease, or unspecified chronic kidney disease; Z88.8 Allergy status to other drugs, medicaments and biological substances; Z88.1 Allergy status to other antibiotic agents; Z88.0 Allergy status to penicillin
CPT/HCPCS: 36415; 70450; 71046; 71275; 80053; 80307; 81001; 82550; 82962; 83735; 84484; 84702; 85025; 85379; 85610; 87116; 93005; 93010; 93306; 96360; G0378; J7030; Q9967